=== PATIENT | male | born 1970 | race Asian ===

== ENCOUNTER 2018-01-04 11:16 | Inpatient (IN) | payer OTHER ==
[~2018-01-04] VITALS: Ht 167.6 cm; Wt 66.3 kg
--- NOTE | 2018-01-04 12:23 | ED GENERAL ADULT ---
History of Present Illness General Chief Complaint: Sore Throat, Dental Pain Stated Complaint: SIB ENT FOR ABSESS ON LEFT NECK Source: patient Exam Limitations: no limitations Vital Signs & Intake/Output Vital Signs & Intake/Output Vital Signs Date Time Temp Pulse Resp B/P B/P Pulse O2 O2 Flow FiO2 Mean Ox Delivery Rate 01/04 1536 98.7 80 18 120/56 99 Room Air 01/04 1250 Room Air Allergies Coded Allergies: No Known Allergies (01/04/18) Reconcile Medications No Known Home Medications Triage Note: PT SIB DR LOZANO FOR AN INFECTED R SIDED SALIVARY GLAND, PT REPORTING PAINFUL SWALLOWING, NO DIFF BREATHING, REPORTING TEMP OF 100.4 LAST NIGHT. Triage Nurses Notes Reviewed? yes HPI: Patient noticed swelling to the left side of his neck approximately 3 days ago. Patient went to see his primary care physician yesterday and he was started on Augmentin. Patient then saw Dr. Lozano in her office today. Dr. Lozano sent him in for evaluation of laboratory data and to obtain a CAT scan of his neck. She would also like him to receive an IV dose of Unasyn. She is unsure if he will require hospitalization for IV antibiotics and possible drainage or if he can be handled as an outpatient. Patient denies any difficulty breathing or swallowing. He describes a pressure type pain in the left side of his neck. Pain is constant. No radiation. He rates it as 3 out of 10. He denies any fevers or chills. Past History Travel History Traveled to [place] past 21 day No Medical History Any Pertinent Medical History? none Neurological: NONE EENT: NONE Cardiovascular: NONE Respiratory: NONE Gastrointestinal: NONE Hepatic: NONE Renal: NONE Musculoskeletal: NONE Psychiatric: NONE Endocrine: NONE Blood Disorders: NONE Cancer(s): NONE Surgical History Surgical History: non-contributory Psychosocial History What is your primary language [place] Tobacco Use: Never used ETOH Use: denies use Illicit Drug Use: denies illicit drug use Family History Hx Contributory? No Review of Systems Review of Systems Constitutional: Reports: no symptoms. EENTM: Reports: see HPI. Respiratory: Reports: no symptoms. Cardiovascular: Reports: no symptoms. GI: Reports: no symptoms. Musculoskeletal: Reports: no symptoms. Neurological/Psychological: Reports: no symptoms. Immunologic/Allergic: Reports: no symptoms. Physical Exam Physical Exam General Appearance: well developed/nourished, alert, awake, mild distress Eyes: Bilateral: PERRL, EOMI. Neck: SWELLINGTO LEFT ANTERIOR NECK Respiratory: normal breath sounds, chest non-tender, no respiratory distress, lungs clear Cardiovascular: regular rate/rhythm, normal peripheral pulses Neurologic/Psych: no motor/sensory deficits, awake, alert, oriented x 3, normal gait, normal mood/affect Lymphatic: no anterior cervical purnima Core Measures ACS in differential dx? No CVA/TIA Diagnosis: No Sepsis Present: No Sepsis Focused Exam Completed? No Progress Differential Diagnoses I considered the following diagnoses in my evaluation of the patient: [SALIVARY ADENITIS, ABSCESS] Plan of Care: Orders Procedure Date/time Status Regular Diet 01/05 B Active Pathway - chart 01/04 180 Active House Staff 01/04 1806 Active Patient Data 01/04 1806 Active Patient Data 01/04 1747 Active ED Holding Orders 01/04 1652 Active Admit to inpatient 01/04 1652 Active Vital Signs 01/04 1652 Active Code Status 01/04 1652 Active BLOOD CULTURE 01/04 1124 Active COMPREHENSIVE METABOLIC PANEL 01/04 1124 Complete CBC WITHOUT DIFFERENTIAL 01/04 1124 Complete VTE Mechanical Prophylaxis 01/04 UNK Active Laboratory Tests 01/04/18 1207: Anion Gap 14, Estimated GFR > 60, BUN/Creatinine Ratio 13.8, Glucose 96, Calcium 9.7, Total Bilirubin 1.6 H, AST 17, ALT 40, Alkaline Phosphatase 87, Total Protein 7.7, Albumin 4.4, Globulin 3.3, Albumin/Globulin Ratio 1.3, CBC w Diff MAN DIFF ORDERED, RBC 5.53, MCV 90.2, MCH 30.3, MCHC 33.6, RDW 13.2, MPV 8.8, Gran % 81.5 H, Lymphocytes % 8.5 L, Monocytes % 9.6 H, Eosinophils % 0.2, Basophils % 0.2, Absolute Granulocytes 14.6 H, Absolute Lymphocytes 1.5, Absolute Monocytes 1.7 H, Absolute Eosinophils 0, Absolute Basophils 0, Platelet Estimate VERIFIED BY SMEAR, Normocytic RBCs VERIFIED, Normochromic RBCs VERIFIED Microbiology 01/04 1235 BLOOD: Blood Culture - RECD 01/04 1230 BLOOD: Blood Culture - RECD Diagnostic Imaging: Viewed by Me: CT Scan. Discussed w/RAD: CT Scan. Radiology Impression: PATIENT: BRUNO MONTES DE OCA PRESENT AGE: 47 PATIENT ACCOUNT NO: [id number] : 68 LOCATION: [facility] ORDERING PHYSICIAN: Cornelius Marvin MD SERVICE DATE: 01/04/18 EXAM TYPE: CAT - CT NECK W IV CONTRAST CT NECK WITH IV CONTRAST CLINICAL INFORMATION: Swelling in the left anterior neck. Elevated white count. COMPARISON: None available. TECHNIQUE: Multidetector CT acquisition of the neck is obtained following the administration of 90 mL of Optiray 320 intravenous contrast without complication. FINDINGS: There is left submandibular acute sialoadenitis with heterogeneous enhancement of the left submandibular gland and significant inflammatory changes within the adjacent left submandibular soft tissues. There is associated thickening of the left platysma muscle compatible with adjacent myositis. Cellulitic changes extend into the left aryepiglottic fold with effacement of the left piriform sinus. There are a few subcentimeter hyperenhancing lymph nodes adjacent to the left submandibular gland that are most likely reactive. No radiopaque calculi are seen along the course of the left submandibular duct. There is a 1.5 cm AP by 1.4 cm TV by 1.8 cm CC peripherally enhancing fluid collection within the lower aspect of the left submandibular gland compatible with an intraglandular abscess. No additional abscesses are identified. Cellulitic changes extend inferiorly superficial to the left platysma muscle and between the left platysma muscle and left thyroid strap musculature. There is no venous thrombosis. The fat planes within the floor of mouth are symmetric and normal. There are no retropharyngeal fluid collections. The thyroid gland is normal. Parotid glands are normal. Cervical arterial vasculature normally opacify. 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 Calcified granuloma along the lateral aspect of the left major fissure. More inferiorly there is a 5 mm nodule within the left major fissure, most likely a fissural lymph node. There is some scarring within the right lung apex and adjacent to the major fissure. The partially imaged intracranial compartment is unremarkable. Small retention cyst within the floor of the right maxillary sinus. The remaining imaged paranasal sinuses and the mastoid air cells are clear. No periapical disease. Bilateral ocular staphylomas. IMPRESSION: - Left submandibular acute sialoadenitis with adjacent left submandibular, cervical, and left aryepiglottic fold cellulitis, the latter resulting in effacement of the left piriform sinus. Myositis of the left platysma muscle and left thyroid strap musculature. - There is an up to 1.8 cm peripherally enhancing fluid collection within the inferior aspect of the left submandibular gland that is most compatible with an intraglandular abscess. - Reactive adjacent lymph nodes. - No radiopaque calculi along the course of [place]'s duct. DICTATED BY: Jass Pressley MD DATE/TIME DICTATED:01/04/181614 STOKER MECHANIC:CHRIST DATE/TIME TRANSCRIBED:01/04/181614 CONFIDENTIAL, DO NOT COPY WITHOUT APPROPRIATE AUTHORIZATION. <Electronically signed in Other Vendor System> SIGNED BY: Jass Pressley MD 01/04/18 1630 Initial ED EKG: none Departure Departure Disposition: STILL A PATIENT Condition: Stable Clinical Impression Primary Impression: Submandibular abscess Secondary Impressions: Submandibular sialoadenitis Referrals: Mimi MARQUEZ,Melquiades Staley (PCP/Family) Departure Forms: Customer Survey General Discharge Information Prescriptions: Current Visit Scripts No Known Home Medications Admission Note Spoke With: Kris Bravo MD Documentation of Exam: Documentation of any treatments & extenuating circumstances including Concerns Regarding Discharge (functional status, medication knowledge or non-compliance, living conditions, etc.) that warrant an admission rather than observation: [IV UNASYN 3GR Q6 HOURS, DR. LOZANO WILL SEE HIM TOMORROW, HER CELL NUMBER IS ] Critical Care Note Critical Care Note Critical Care Time: non-applicable
[2018-01-04 12:31] LABS: ABSOLUTE BASOPHIL COUNT 0 /CUMM (0.0-0.2); ABSOLUTE EOSINOPHIL COUNT 0 /CUMM (0.0-0.7); ABSOLUTE GRANULOCYTE CT 14.6 /CUMM (1.4-6.5); ABSOLUTE LYMPH COUNT 1.5 /CUMM (1.2-3.4); ABSOLUTE MONOCYTE COUNT 1.7 /CUMM (0.10-0.60); BASOPHIL % 0.2 % (0.0-2.0); EOSINOPHIL % 0.2 % (0-5); GRANULOCYTE % 81.5 % (42.2-75.2); HEMATOCRIT 49.9 % (42-52); MEAN CORPUSCULAR HGB 30.3 PG (27.0-31.0); MEAN CORPUSCULAR HGB CONC 33.6 G/DL (33.0-37.0); MEAN CORPUSCULAR VOLUME 90.2 FL (80.0-94.0); MEAN PLATELET VOLUME 8.8 FL (7.4-10.4); PLATELET COUNT 268 /CUMM (130-400); RBC DISTRIBUTION WIDTH 13.2 % (11.5-14.5); RED BLOOD CELL CT 5.53 /CUMM (4.70-6.10); WHITE BLOOD CELL COUNT 17.9 /CUMM (4.8-10.8)
--- NOTE | 2018-01-04 16:30 | CT SCAN REPORT ---
CT NECK WITH IV CONTRAST CLINICAL INFORMATION: Swelling in the left anterior neck. Elevated white count. COMPARISON: None available. TECHNIQUE: Multidetector CT acquisition of the neck is obtained following the administration of 90 mL of Optiray 320 intravenous contrast without complication. FINDINGS: There is left submandibular acute sialoadenitis with heterogeneous enhancement of the left submandibular gland and significant inflammatory changes within the adjacent left submandibular soft tissues. There is associated thickening of the left platysma muscle compatible with adjacent myositis. Cellulitic changes extend into the left aryepiglottic fold with effacement of the left piriform sinus. There are a few subcentimeter hyperenhancing lymph nodes adjacent to the left submandibular gland that are most likely reactive. No radiopaque calculi are seen along the course of the left submandibular duct. There is a 1.5 cm AP by 1.4 cm TV by 1.8 cm CC peripherally enhancing fluid collection within the lower aspect of the left submandibular gland compatible with an intraglandular abscess. No additional abscesses are identified. Cellulitic changes extend inferiorly superficial to the left platysma muscle and between the left platysma muscle and left thyroid strap musculature. There is no venous thrombosis. The fat planes within the floor of mouth are symmetric and normal. There are no retropharyngeal fluid collections. The thyroid gland is normal. Parotid glands are normal. Cervical arterial vasculature normally opacify. 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 Calcified granuloma along the lateral aspect of the left major fissure. More inferiorly there is a 5 mm nodule within the left major fissure, most likely a fissural lymph node. There is some scarring within the right lung apex and adjacent to the major fissure. The partially imaged intracranial compartment is unremarkable. Small retention cyst within the floor of the right maxillary sinus. The remaining imaged paranasal sinuses and the mastoid air cells are clear. No periapical disease. Bilateral ocular staphylomas. IMPRESSION: - Left submandibular acute sialoadenitis with adjacent left submandibular, cervical, and left aryepiglottic fold cellulitis, the latter resulting in effacement of the left piriform sinus. Myositis of the left platysma muscle and left thyroid strap musculature. - There is an up to 1.8 cm peripherally enhancing fluid collection within the inferior aspect of the left submandibular gland that is most compatible with an intraglandular abscess. - Reactive adjacent lymph nodes. - No radiopaque calculi along the course of [place]'s duct.
--- NOTE | 2018-01-04 17:54 | History & Physical ---
Ameena MARQUEZ,[facility] 01/04/18 1754: General Information and HPI MD Statement: I have seen and personally examined BRUNO MARIE and documented this H&P. The patient is a 47 year old M who presented with a patient stated chief complaint of sent in by ENT Physician. Source of Information: patient, family, old records Exam Limitations: no limitations History of Present Illness: Mr. 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 Patient states that his illness originally began the beginning of the week on Saturday12/30/2017. He initially thought that his symptoms may be due to a local viral infection that he may have been exposed to by his kids. He subsequently decided that he watch this and on felt that this got worse. Patient states that over the course of the week his swelling in his left neck continued to get bigger. On 01/03/2018 he visited with his primary care physician Melquiades Le MD and was started on oral Augmentin. While at Melquiades Le MD's office ENT physician Dr. Lozano was called and recommended that if symptoms did not improve in the next 24 hours the patient should visit her office. Patient was febrile up to 100.4. He also endorses subjective fever and chills. On the morning of 01/04/2018 the patient visited the office of Dr. Lozano who recommended that the patient come to the emergency department for IV antibiotics since his symptoms has not really improved. Prior to this the patient was in his normal state of health. He denies any trauma to the area. Denies any recent IV contrast exposure. He denies any radiation. Patient is not on any medications. His primary care physician is Melquiades Le MD. 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 Allergies/Medications Allergies: Coded Allergies: No Known Allergies (01/04/18) Home Med list Amoxicillin/Potassium Clav (Augmentin 875-125 Tablet) 875 MG-125 MG TABLET 1 TAB PO BID Sialadenitis Start taking the evening of 01/06/18 Compliance With Home Meds: GOOD Past History Travel History Traveled to [place] past 21 day No Medical History Neurological: NONE EENT: NONE Cardiovascular: NONE Respiratory: Tuberculosis, treated for 12 months, with qaudruple therapy. Gastrointestinal: NONE Hepatic: NONE Renal: NONE Musculoskeletal: NONE Psychiatric: NONE Endocrine: NONE Blood Disorders: NONE Cancer(s): NONE Surgical History Surgical History: non-contributory Past Family/Social History Family History Relations & Conditions if any FATHER (HTN & Parkinsons). MOTHER (HTN). Psychosocial History Where do you live? Home Who Do You Live With? spouse, child Services at Home: None Primary Language: Latvian Smoking Status: Former Smoker ETOH Use: denies use Illicit Drug Use: denies illicit drug use Living Will? no Functional Ability ADLs Independent: dressing, eating, toileting, bathing. Ambulation: independent IADLs Independent: shopping, housework, finances, food prep, telephone, transportation , medication admin. Sexual History Sexually Active Yes # of partners 1 Sexual Orientation Heterosexual Employment History Employment Employed Review of Systems Review of Systems Constitutional: Reports: chills, fever. EENTM: Reports: throat pain, throat swelling. Denies: blurred vision, double vision, mouth pain. Cardiovascular: Denies: chest pain, edema, orthopena. Respiratory: Denies: cough, hemoptysis, orthopnea, short of breath, sputum production. GI: Denies: abdominal pain, bloating, constipation, diarrhea, distention, bowel incontinence, melena. Genitourinary: Denies: discharge, dysuria, frequency, hematuria. Musculoskeletal: Denies: back pain, gout, joint pain. Skin: Denies: change in hair/nails, dryness, erythema, jaundice. Neurological/Psychological: Denies: anxiety, cognitive dysfunction, confusion, depressed. Exam & Diagnostic Data Last 24 Hrs of Vital Signs/I&O Vital Signs Date Time Temp Pulse Resp B/P B/P Pulse O2 O2 Flow FiO2 Mean Ox Delivery Rate 01/04 1536 98.7 80 18 120/56 99 Room Air 01/04 1250 Room Air Intake & Output 01/04 1600 01/04 0800 01/04 0000 Intake Total Output Total Balance Patient 67.585 kg Weight Weight Reported by Patient Measurement Method Physical Exam General Appearance Alert, Oriented X3 Skin No Rashes, No Breakdown, No Significant Lesion, Scar Located in the Right Clavicular area Skin Temp/Moisture Exam: Warm/Dry Sepsis Skin Exam (color): Normal for Ethnicity HEENT PERRLA, EOMI, Mucous Membranes Dry , Erytehma and tenderness noted on left lateral enterior neck. Swelling noted approximately 5 cm X 5 cm. Neck Supple, Left Sided Swelling. Signs of erythema and tenderness with light touch. Cardiovascular Normal S1, Normal S2 Lungs Clear to Auscultation Abdomen Normal Bowel Sounds, Soft, No Tenderness Neurological Normal Speech, Strength at 5/5 X4 Ext Extremities No Cyanosis, No Edema Vascular Normal Pulses Body Front and Back (Adult) 1) Left sided neck pain Last 24 Hrs of Labs/Luis: Laboratory Tests 01/04/18 1207: Anion Gap 14, Estimated GFR > 60, BUN/Creatinine Ratio 13.8, Glucose 96, Calcium 9.7, Total Bilirubin 1.6 H, AST 17, ALT 40, Alkaline Phosphatase 87, Total Protein 7.7, Albumin 4.4, Globulin 3.3, Albumin/Globulin Ratio 1.3, CBC w Diff MAN DIFF ORDERED, RBC 5.53, MCV 90.2, MCH 30.3, MCHC 33.6, RDW 13.2, MPV 8.8, Gran % 81.5 H, Lymphocytes % 8.5 L, Monocytes % 9.6 H, Eosinophils % 0.2, Basophils % 0.2, Absolute Granulocytes 14.6 H, Absolute Lymphocytes 1.5, Absolute Monocytes 1.7 H, Absolute Eosinophils 0, Absolute Basophils 0, Platelet Estimate VERIFIED BY SMEAR, Normocytic RBCs VERIFIED, Normochromic RBCs VERIFIED Microbiology 01/04 1235 BLOOD: Blood Culture - RECD 01/04 1230 BLOOD: Blood Culture - RECD Diagnostic Data Other Results SERVICE DATE: 01/04/18 EXAM TYPE: CAT - CT NECK W IV CONTRAST CT NECK WITH IV CONTRAST CLINICAL INFORMATION: Swelling in the left anterior neck. Elevated white count. COMPARISON: None available. TECHNIQUE: Multidetector CT acquisition of the neck is obtained following the administration of 90 mL of Optiray 320 intravenous contrast without complication. FINDINGS: There is left submandibular acute sialoadenitis with heterogeneous enhancement of the left submandibular gland and significant inflammatory changes within the adjacent left submandibular soft tissues. There is associated thickening of the left platysma muscle compatible with adjacent myositis. Cellulitic changes extend into the left aryepiglottic fold with effacement of the left piriform sinus. There are a few subcentimeter hyperenhancing lymph nodes adjacent to the left submandibular gland that are most likely reactive. No radiopaque calculi are seen along the course of the left submandibular duct. There is a 1.5 cm AP by 1.4 cm TV by 1.8 cm CC peripherally enhancing fluid collection within the lower aspect of the left submandibular gland compatible with an intraglandular abscess. No additional abscesses are identified. Cellulitic changes extend inferiorly superficial to the left platysma muscle and between the left platysma muscle and left thyroid strap musculature. There is no venous thrombosis. The fat planes within the floor of mouth are symmetric and normal. There are no retropharyngeal fluid collections. The thyroid gland is normal. Parotid glands are normal. Cervical arterial vasculature normally opacify. 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 Calcified granuloma along the lateral aspect of the left major fissure. More inferiorly there is a 5 mm nodule within the left major fissure, most likely a fissural lymph node. There is some scarring within the right lung apex and adjacent to the major fissure. The partially imaged intracranial compartment is unremarkable. Small retention cyst within the floor of the right maxillary sinus. The remaining imaged paranasal sinuses and the mastoid air cells are clear. No periapical disease. Bilateral ocular staphylomas. IMPRESSION: - Left submandibular acute sialoadenitis with adjacent left submandibular, cervical, and left aryepiglottic fold cellulitis, the latter resulting in effacement of the left piriform sinus. Myositis of the left platysma muscle and left thyroid strap musculature. - There is an up to 1.8 cm peripherally enhancing fluid collection within the inferior aspect of the left submandibular gland that is most compatible with an intraglandular abscess. - Reactive adjacent lymph nodes. - No radiopaque calculi along the course of Dover's duct. DICTATED BY: Jass Pressley MD Assessment/Plan Assessment: Mr. 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 His symptoms are likely related to acute dehydration versus poor dentition. Problem List: #Acute sialoadenitis with adjacent left cellulitis #Acute Pain #Elevated Billirubin Admit the patient to general medical service. Continue IV antibiotic 6 with IV Unasyn. Will monitor vital signs every 4 hours and if any signs of respiratory distress would have a low threshold to transfer to [facility] for close monitoring and possible intubation. Warm compresses to area. Formal ENT consultation has been obtained for 01/05/2018. Gentle hydration with normal saline at 75 mL per hour. CBC and BEP in a.m. May consider infectious diseases consultation in a.m. if patient's symptoms are not improved. Pain to be controlled with a combination of Tylenol, NSAIDs and morphine for breakthrough pain. Elevated bilirubin likely due to infection. Monitor bilirubin in a.m. If continues to rise may consider abdominal ultrasound in the morning. DVT prophylaxis with Lovenox. Diet will begin the patient on a mechanical soft diet but will make patient nothing by mouth at midnight in case surgical intervention is warranted in am. Patient is a full code. As Ranked By This Provider Problem List: 1. Submandibular sialoadenitis 2. Submandibular abscess Core Measures/Misc (07/14) Acute Coronary Syndrome ACS Diagnosis: No Congestive Heart Failure Congestive Heart Failure Diagnosis No Cerebrovascular Accident CVA/TIA Diagnosis: No VTE (View Protocol) VTE Risk Factors Age>40 No Mechanical VTE Prophylaxis d/t N/A MechProphylax Ordered No VTE Pharm Prophylaxis d/t NA PharmProphylax ordered Sepsis (View protocol) Sepsis Present: No Flor Porras 01/05/18 0059: Attending MD Review Statement Attending Statement Attending MD Statement: examined this patient, discuss w/resident/PA/INTERNAL SALES, agreed w/resident/PA/INTERNAL SALES, reviewed EMR data (avail), reviewed images, amended to note Attending Assessment/Plan: CC: Swelling on left side of neck PMH: Past history of tuberculosis Patient was sent to ER by ENT for swelling in left side of neck. Swelling started on Saturday, progressively worse until , patient thought it might be lymphadenopathy so he watched the swelling, been on Saturday he visited her primary care physician where primary care physician discussed the findings with ENT, who suggested to continue Augmentin, watch for 24 hours and suggested to follow-up with her. When patient went to see her today swelling had worsened, patient had mild dysphasia, so patient was suggested to go to ER for further imaging, IV antibiotics. Patient endorses fever, chills at home, no dental trauma or dental procedure, no chest pain, palpitations, breathing difficulty, otherwise ROS unremarkable Vitals: T max 100.7, pulse 98, RR 20, blood pressure 120/56, saturating 99% on room air. On exam: A O 3, cooperative, no acute distress, neck supple, approximately 5 cm diameter indurated swelling on left side of the neck, mild swelling under the tongue, trismus, no stridor, JVD normal, mucosa moist, no focal neurological deficit, no dependent edema, no obvious skin rashes or inflammation CVS: S1-S2, RRR. RS: Clear to auscultate bilaterally. Abdomen: Soft, NT, ND, bowel sounds present. CT neck with IV contrast - Left submandibular acute sialoadenitis with adjacent left submandibular, cervical, and left aryepiglottic fold cellulitis, the latter resulting in effacement of the left piriform sinus. Myositis of the left platysma muscle and left thyroid strap musculature. - There is an up to 1.8 cm peripherally enhancing fluid collection within the inferior aspect of the left submandibular gland that is most compatible with an intraglandular abscess. - Reactive adjacent lymph nodes. - No radiopaque calculi along the course of Dover's duct. Assessment and plan 47-year-old male with no significant past medical history was sent to ER by ENT for worsening left sided neck swelling, fever, chills, dysphagia. Patient has significant left neck swelling, mild inflammation under tongue, no obvious pus discharge, low-grade fever, significant leukocytosis. CT scan mentions finding of submandibular gland abscess with surrounding inflammation. ENT was called from ER. We will continue evening diet and then nothing by mouth after midnight, if patient may require I and D. We'll continue Unasyn, pain control. + Left submandibular abscess with surrounding inflammation - Admit to general med - Continue gentle hydration - Nothing by mouth after midnight - Continue IV Unasyn - Adequate pain control - Warm compresses - Trend lactate
[2018-01-04 20:29] VITALS: BP 134/80
--- NOTE | 2018-01-05 01:00 | Admission Certification ---
Admission Certification Certification Statement - As attending physician, I certify that at the time of - admission, based on clinical presentation, severity of - symptoms, need for further diagnostic testing and - therapeutic interventions, and risk of adverse outcomes - without in-hospital treatment, in my clinical assessment, - this patient requires an acute hospital stay for a minimum - of two nights or longer. I have also considered psychsocial - factors such as support system, advanced age, financial - issues, cognitive issues, and failed out-patient treatments, - past re-admission history, safety of patient, and lack of - compliance as applicable. Specific rationale supporting this admission is: left submandibular gland abscess
[2018-01-05 01:51] VITALS: BP 115/77
[2018-01-05 06:20] VITALS: BP 107/66
--- NOTE | 2018-01-05 07:30 | Event Note ---
Event Note Event Note: At 7:30 AM internet project manager received call that ENT Dr. Larsen had called the nurse for update on Mr. Marie. Consulting Technical Manager return call and updated on patient's status including vital signs, imaging tests, labs. Dr. Larsen stated that likely no surgical intervention as this type of infection is usually resolved with antibiotics followed by removal of the salivary gland when infection completely irradicated but told us to keep the patient nothing by mouth. He will come by to assess the patient this morning. Told to speak with Dr. Cornelius Lerma, internet project manager when he arrives.
[2018-01-05 08:49] LABS: ABSOLUTE BASOPHIL COUNT 0 /CUMM (0.0-0.2); ABSOLUTE EOSINOPHIL COUNT 0.1 /CUMM (0.0-0.7); ABSOLUTE GRANULOCYTE CT 9.5 /CUMM (1.4-6.5); ABSOLUTE LYMPH COUNT 1.3 /CUMM (1.2-3.4); ABSOLUTE MONOCYTE COUNT 1.4 /CUMM (0.10-0.60); BASOPHIL % 0.3 % (0.0-2.0); EOSINOPHIL % 0.9 % (0-5); GRANULOCYTE % 76.9 % (42.2-75.2); MEAN CORPUSCULAR HGB 30.8 PG (27.0-31.0); MEAN CORPUSCULAR HGB CONC 33.6 G/DL (33.0-37.0); MEAN CORPUSCULAR VOLUME 91.9 FL (80.0-94.0); MEAN PLATELET VOLUME 8.9 FL (7.4-10.4); PLATELET COUNT 250 /CUMM (130-400); RBC DISTRIBUTION WIDTH 13.1 % (11.5-14.5); RED BLOOD CELL CT 4.65 /CUMM (4.70-6.10); WHITE BLOOD CELL COUNT 12.3 /CUMM (4.8-10.8)
--- NOTE | 2018-01-05 08:51 | PN- Housestaff ---
Destiney MARQUEZ,[facility] 01/05/18 0850: Subjective Follow-up For: sialoadenitis Subjective: Patient was seen and examined at bedside. He is resting comfortably. He had no acute events overnight. He reports significant improvement in his left-sided throat pain and swelling. He had no fever overnight. He denies any nausea, vomiting, fever, chills, chest pain, shortness of breath. Review of Systems Constitutional: Denies: chills, malaise. EENTM: Reports: throat pain, throat swelling. Cardiovascular: Reports: no symptoms. Respiratory: Reports: no symptoms. Gastrointestinal: Reports: no symptoms. Genitourinary: Reports: no symptoms. Musculoskeletal: Reports: no symptoms. Objective Last 24 Hrs of Vital Signs/I&O Vital Signs Date Time Temp Pulse Resp B/P B/P Pulse O2 O2 Flow FiO2 Mean Ox Delivery Rate 01/05 0620 98.5 69 18 107/66 99 Room Air 01/05 0151 98.1 70 18 115/77 98 Room Air 01/04 2029 98.5 98 20 134/80 97 Room Air 01/04 1943 100.7 01/04 1937 100.7 98 20 144/97 98 Room Air 01/04 1536 98.7 80 18 120/56 99 Room Air 01/04 1250 Room Air Intake & Output 01/05 1600 01/05 0800 01/05 0000 Intake Total 600 1125 Output Total Balance 600 1125 Intake, IV 600 325 Intake, Oral 0 800 Patient 146 lb 149 lb Weight Weight Bed scale Measurement Method Physical Exam General Appearance: Alert, Oriented X3, Cooperative, No Acute Distress Skin Temp/Moisture Exam: Warm/Dry HEENT: PERRLA, EOMI, Mucous Membr. moist/pink Neck: L submandibular firm neck swelling, with mild TTp Cardiovascular: Regular Rate, Normal S1, Normal S2 Lungs: Clear to Auscultation, Normal Air Movement Abdomen: Normal Bowel Sounds, Soft, No Tenderness Neurological: Cranial Nerves 3-12 NL Current Medications: Current Medications Sig/Luz Start time Last Medication Dose Route Stop Time Status Admin Acetaminophen 0 .STK-MED ONE 01/05 1944 DC IV Acetaminophen 1,000 MG Q6P PRN 01/04 184 AC 01/04 IV 1942 Ampicillin Sodium/ 0 .STK-MED ONE 01/04 1914 DC Sulbactam Sodium .ROUTE Ampicillin Sodium/ 3,000 MG Q6 01/04 1827 AC 01/05 Sulbactam Sodium IV 0547 Sodium Chloride 100 ML Ampicillin Sodium/ 3,000 MG ONCE ONE 01/04 1230 DC 01/04 Sulbactam Sodium IV 01/04 1259 1240 Sodium Chloride 100 ML Ampicillin Sodium/ 0 .STK-MED ONE 01/04 1225 DC Sulbactam Sodium .ROUTE Enoxaparin Sodium 40 MG DAILY 01/045 AC 01/04 SC 2235 Ibuprofen 200 MG Q6 PRN 01/04 1845 AC 01/04 PO 2235 Morphine Sulfate 2 MG Q8 PRN 01/04 1845 AC IV Sodium Chloride 1,000 ML Q13H 01/04 1915 DC 01/04 IV 01/05 0814 2044 Last 24 Hrs of Lab/Luis Results Last 24 Hrs of Labs/Mics: Laboratory Tests 01/05/18 0725: Sodium Pending, Potassium Pending, Chloride Pending, Carbon Dioxide Pending, Anion Gap Pending, BUN Pending, Creatinine Pending, BUN/Creatinine Ratio Pending , Total Bilirubin Pending, CBC w Diff Pending, WBC Pending, RBC Pending, Hgb Pending, Hct Pending, MCV Pending, MCH Pending, MCHC Pending, RDW Pending, Plt Count Pending, MPV Pending 01/05/18 0145: Lactic Acid 0.7 01/04/18 2250: Lactic Acid 0.8 01/04/18 1207: Anion Gap 14, Estimated GFR > 60, BUN/Creatinine Ratio 13.8, Glucose 96, Calcium 9.7, Total Bilirubin 1.6 H, AST 17, ALT 40, Alkaline Phosphatase 87, Total Protein 7.7, Albumin 4.4, Globulin 3.3, Albumin/Globulin Ratio 1.3, CBC w Diff MAN DIFF ORDERED, RBC 5.53, MCV 90.2, MCH 30.3, MCHC 33.6, RDW 13.2, MPV 8.8, Gran % 81.5 H, Lymphocytes % 8.5 L, Monocytes % 9.6 H, Eosinophils % 0.2, Basophils % 0.2, Absolute Granulocytes 14.6 H, Absolute Lymphocytes 1.5, Absolute Monocytes 1.7 H, Absolute Eosinophils 0, Absolute Basophils 0, Platelet Estimate VERIFIED BY SMEAR, Normocytic RBCs VERIFIED, Normochromic RBCs VERIFIED Microbiology 01/04 1235 BLOOD: Blood Culture - RECD 01/04 1230 BLOOD: Blood Culture - RECD Assessment/Plan 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 #Acute sialoadenitis Personally reviewed the CT imaging with Dr. Larsen, and no abscess or stone was seen. Patient is clinically improving. - Continue IV Unasyn. - Warm compresses to area. -Start sialogogue in between meals - Recommend aggressive oral rehydration and left-sided neck -If patient is stable overnight he may be discharged tomorrow a.m. on Augmentin with ENT follow-up in 2 weeks -Continue adequate pain management DVT prophylaxis with Lovenox. Full liquid diet, advance to regular diet as tolerated Patient is a full code. Problem List: 1. Submandibular sialoadenitis Pain Ratin Pain Location: L neck Pain Goal: Pain 4 or less Pain Plan: pain pathway Tomorrow's Labs & Rationales: Akilah Robledo MD 01/05/18 1315: Attending MD Review Statement Attending Statement Attending MD Statement: examined this patient, discuss w/resident/PA/MATERIAL STRESS TESTER, agreed w/resident/PA/MATERIAL STRESS TESTER, reviewed EMR data (avail) Attending Assessment/Plan: Doing well, afebrile, stable vitals. Will continue Unasyn and sialogogues, follow ENT recommendations, anticipated discharge tomorrow if continues to improve.
[2018-01-05 09:13] LABS: HEMATOCRIT 42.7 % (42-52)
--- NOTE | 2018-01-05 09:53 | Cons- Ear,Nose&Throat ---
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 He thought was perhaps lymphadenitis therefore treated expectantly. The neck continued to swell and became more uncomfortable. On 01/03/18 he saw his Primary care physician who started him on Augmentin 875 mg twice a day. The following morning he noted increased swelling, and tenderness and low-grade fever and was referred to Francesca Lozano MD was evaluated him in the office and felt that intravenous antibiotics would be more appropriate and a CAT scan was ordered. The CAT scan revealed enlargement of the left submandibular gland with areas of lucency possibly abscess formation. No evidence of any stones were noted He was then admitted to the hospital and begun on Unasyn. This morning he states he feels much improved with decreased tenderness and swelling. He recalls an oral ulcer several weeks ago. There is no history of dental infection or abnormality Allergies/Medications Allergies: Coded Allergies: No Known Allergies (01/04/18) Home Med List: No Known Home Medications Current Medications: Current Medications Sig/Luz Start time Last Medication Dose Route Stop Time Status Admin Acetaminophen 0 .STK-MED ONE 01/05 1944 DC IV Acetaminophen 1,000 MG Q6P PRN 01/04 1845 AC 01/04 IV 1943 Ampicillin Sodium/ 0 .STK-MED ONE 01/04 1914 DC Sulbactam Sodium .ROUTE Ampicillin Sodium/ 3,000 MG Q6 01/04 1827 AC 01/05 Sulbactam Sodium IV 0547 Sodium Chloride 100 ML Ampicillin Sodium/ 3,000 MG ONCE ONE 01/04 1230 DC 01/04 Sulbactam Sodium IV 01/04 1259 1240 Sodium Chloride 100 ML Ampicillin Sodium/ 0 .STK-MED ONE 01/04 1225 DC Sulbactam Sodium .ROUTE Enoxaparin Sodium 40 MG DAILY 01/04 2115 AC 01/05 SC 0945 Ibuprofen 200 MG Q6 PRN 01/04 184 AC 01/04 PO 2235 Morphine Sulfate 2 MG Q8 PRN 01/04 184 AC IV Non-Formulary 0 SEE ADMIN CRITERIA 01/05 0945 UNVr Medication ANY Sodium Chloride 1,000 ML Q13H 01/04 1915 DC 01/04 IV 01/05 Past History Medical History Blood Transfusion Hx: No Neurological: NONE EENT: NONE Cardiovascular: NONE Respiratory: Tuberculosis, treated for 12 months, with qaudruple therapy. Gastrointestinal: NONE Hepatic: NONE Renal: NONE Musculoskeletal: NONE Psychiatric: NONE Endocrine: NONE Blood Disorders: NONE Cancer(s): NONE Surgical History Pertinent Surgical History: non-contributory Family History Relations & Conditions If Any: FATHER (HTN & Parkinsons). MOTHER (HTN). Psychosocial History Where Do You Live? Home Who Do You Live With? spouse, child Services at Home: None Primary Language: Turkish Smoking Status: Former Smoker ETOH Use: denies use Illicit Drug Use: denies illicit drug use Living Will? no Functional Ability ADLs Independent: dressing, eating, toileting, bathing. Ambulation: independent IADLs Independent: shopping, housework, finances, food prep, telephone, transportation , medication admin. Employment History Employment: Employed Exam & Diagnostic Data Vital Signs and I&O Vital Signs Date Time Temp Pulse Resp B/P B/P Pulse O2 O2 Flow FiO2 Mean Ox Delivery Rate 01/05 0620 98.5 69 18 107/66 99 Room Air 01/05 0151 98.1 70 18 115/77 98 Room Air 01/04 2029 98.5 98 20 134/80 97 Room Air 01/04 1943 100.7 01/04 193 100.7 98 20 144/97 98 Room Air 01/04 1536 98.7 80 18 120/56 99 Room Air 01/04 1250 Room Air Intake & Output 01/05 1600 01/05 0800 01/05 0000 01/04 1600 01/04 0800 01/04 0000 Intake Total 600 1125 Output Total Balance 600 1125 Intake, IV 600 325 Intake, Oral 0 800 Patient 146 lb 149 lb 149 lb Weight Weight Bed scale Reported by Patient Measurement Method Physical Exam: By examination at the bedside acute distress. He is awake alert and oriented intravenous fluids and medication in place. He is afebrile Voice is normal unremarkable airway Ears: Unremarkable Nose: Clear Oropharynx: No trismus The left floor of mouth is slightly erythematous but not swollen No dental caries are noted Neck examination reveals significantly swollen left submandibular gland which is slightly tender and measures approximately 4-5 cm. Palpation of the gland reveals no evidence of abnormal discharge from the Mcgrath's duct The neck is supple Assessment/Plan Assessment/Plan Impression: Acute left submandibular gland sialadenitis which is gradually improving with intravenous antibiotics Although there may be a small fluid collection, i do not feel drainage is appropriate at this time. Recommendation: Hydration both orally as well as intravenously Sialagogues between meals Massage of the gland Heat Continuation of present antibiotics with anticipation of switching to oral Augmentin Follow-up in the office with Dr. Lozano Consult Acknowledgment - Thank you for your consult request.
[2018-01-05 10:48] VITALS: BP 108/60
[2018-01-05 13:49] VITALS: BP 110/60
[2018-01-05 18:07] VITALS: BP 119/72
[2018-01-05 22:00] VITALS: BP 124/78
[2018-01-06 02:11] VITALS: BP 107/70
[2018-01-06 06:20] VITALS: BP 106/78
--- NOTE | 2018-01-06 07:19 | PN- Housestaff ---
Subjective Follow-up For: Sialadenitis Subjective: Patient was seen and examined at bedside. He is resting comfortably. He had no acute events overnight. He continues to have improvement in his left-sided throat pain but no significant change in swelling. He had no fever overnight. He tolerated a regular diet well. He denies any nausea, vomiting, fever, chills, chest pain, shortness of breath. Review of Systems Constitutional: Reports: no symptoms. EENTM: Reports: throat swelling. Denies: throat pain. Cardiovascular: Reports: no symptoms. Respiratory: Reports: no symptoms. Gastrointestinal: Reports: no symptoms. Genitourinary: Reports: no symptoms. Musculoskeletal: Reports: no symptoms. Objective Last 24 Hrs of Vital Signs/I&O Vital Signs Date Time Temp Pulse Resp B/P B/P Pulse O2 O2 Flow FiO2 Mean Ox Delivery Rate 01/06 0620 98.4 71 18 106/78 97 Room Air 01/06 0211 98.4 66 18 107/70 96 Room Air 01/05 2200 98.2 69 20 124/78 98 Room Air 01/05 1807 97.2 94 19 119/72 98 Room Air 01/05 1349 98.9 93 18 110/60 97 01/05 1048 99.2 79 18 108/60 97 Intake & Output 01/06 0800 01/06 0000 01/05 1600 Intake Total 935 096 2459 Output Total Balance 093 157 1330 Intake, IV 250 Intake, Oral 138 632 7939 Patient 146 lb Weight Weight Bed scale Measurement Method Physical Exam General Appearance: Alert, Oriented X3, Cooperative, No Acute Distress Skin Temp/Moisture Exam: Warm/Dry Neck: no change in firm submandibular swellin on L side of neck, remains TTP Cardiovascular: Regular Rate, Normal S1, Normal S2 Lungs: Clear to Auscultation, Normal Air Movement Abdomen: Normal Bowel Sounds, Soft, No Tenderness Neurological: Normal Speech, Normal Tone, Sensation Intact Extremities: No Clubbing, No Cyanosis, No Edema Current Medications: Current Medications Sig/Luz Start time Last Medication Dose Route Stop Time Status Admin Acetaminophen 1,000 MG Q6P PRN 01/04 1845 AC 01/05 IV 1717 Ampicillin Sodium/ 3,000 MG Q6 01/04 1827 AC 01/06 Sulbactam Sodium IV 0541 Sodium Chloride 100 ML Enoxaparin Sodium 40 MG DAILY 01/04 2115 01/05 SC 0945 Ibuprofen 200 MG Q6 PRN 01/04 184 AC 01/04 PO 2235 Morphine Sulfate 2 MG Q8 PRN 01/04 1845 IV Sodium Chloride 1,000 ML Q13H 01/04 1915 DC 01/04 IV 01/05 [id number] Last 24 Hrs of Lab/Luis Results Last 24 Hrs of Labs/Mics: Laboratory Tests 01/05/18 0725: Anion Gap 9, Estimated GFR > 60, BUN/Creatinine Ratio 15.0, Total Bilirubin 0.7, CBC w Diff NO MAN DIFF REQ, RBC 4.65 L, MCV 91.9, MCH 30.8, MCHC 33.6, RDW 13.1 , MPV 8.9, Gran % 76.9 H, Lymphocytes % 10.6 L, Monocytes % 11.3 H, Eosinophils % 0.9, Basophils % 0.3, Absolute Granulocytes 9.5 H, Absolute Lymphocytes 1.3, Absolute Monocytes 1.4 H, Absolute Eosinophils 0.1, Absolute Basophils 0 Assessment/Plan 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 #Acute sialoadenitis Patient has shown clinical improvement. -To receive IV Unasyn today and will be discharged on a 10 day courseof Augmentin - Warm compresses to area. -Continue with sialogogue in between meals as an outpatient - Recommend aggressive oral rehydration and left-sided neck massage - Patient's WBC has normalized and he has remained afebrile, he is stable for discharge today -Continue adequate pain management -He will be referred to Dr. Lozano as an outpatient for follow-up within 1-2 weeks DVT prophylaxis with Lovenox. Full liquid diet, advance to regular diet as tolerated Patient is a full code. Problem List: 1. Submandibular sialoadenitis Pain Ratin Pain Location: no pain, but L neck is tender to palpation Pain Goal: Remain pain free Pain Plan: pain pathway Tomorrow's Labs & Rationales: none
[2018-01-06 09:12] LABS: ABSOLUTE BASOPHIL COUNT 0 /CUMM (0.0-0.2); ABSOLUTE EOSINOPHIL COUNT 0.1 /CUMM (0.0-0.7); ABSOLUTE GRANULOCYTE CT 7.6 /CUMM (1.4-6.5); ABSOLUTE LYMPH COUNT 1.2 /CUMM (1.2-3.4); ABSOLUTE MONOCYTE COUNT 0.8 /CUMM (0.10-0.60); BASOPHIL % 0.4 % (0.0-2.0); EOSINOPHIL % 0.9 % (0-5); GRANULOCYTE % 78.4 % (42.2-75.2); HEMATOCRIT 43.4 % (42-52); MEAN CORPUSCULAR HGB CONC 33.8 G/DL (33.0-37.0); MEAN CORPUSCULAR VOLUME 91.8 FL (80.0-94.0); MEAN PLATELET VOLUME 8.8 FL (7.4-10.4); PLATELET COUNT 284 /CUMM (130-400); RED BLOOD CELL CT 4.73 /CUMM (4.70-6.10); WHITE BLOOD CELL COUNT 9.7 /CUMM (4.8-10.8)
[2018-01-06] MEDS ORDERED: AUGMENTIN 875-1 EACH PO ×3 (09:54→12:50)
--- NOTE | 2018-01-06 09:58 | Patient Discharge Instructions ---
Discharge Instructions General Discharge Information You were seen/treated for: Sialadenitis Special Instructions: Follow-up with Dr. Lozano within 1-2 weeks. We have provided you with a referral. Follow-up with your primary care phyisician within 1 week. Take full course of antibiotics. Suck on hard and sour candies like lemon drops or warheads in between meals. Use warm compresses on the swelling, and massage the area regularly. Stay well hydrated. If you sould experience worsening pain, throat tightness, difficulty swallowing or difficulty breathing, call your doctor or return to the ER right away. Acute Coronary Syndrome Inclusion Criteria At DC or during hospital stay patient has or had the following: ACS DIAGNOSIS No Discharge Core Measures Meds if any: Prescribed or Continued at Discharge Meds if any: NOT Prescribed or Continued at Discharge Congestive Heart Failure Inclusion Criteria At DC or during hospital stay patient has or had the following: CHF DIAGNOSIS No Discharge Core Measures Meds if any: Prescribed or Continued at Discharge Meds if any: NOT Prescribed or Continued at Discharge Cerebrovascular accident Inclusion Criteria At DC or during hospital stay patient has or had the following: CVA/TIA Diagnosis No Discharge Core Measures Meds if any: Prescribed or Continued at Discharge Meds if any: NOT Prescribed or Continued at Discharge Venous thromboembolism Inclusion Criteria VTE Diagnosis No VTE Type NONE VTE Confirmed by (Test) NONE Discharge Core Measures - Per Current guidelines, there needs to be overlap - treatment for the first 5 days of Warfarin therapy. - If discharged on Warfarin prior to 5 days of - overlap therapy, the patient will need to be - assessed for post discharge needs including - *Post discharge parental anticoagulation - *Warfarin and/or parental anticoagulation education - *Follow up date to check INR post discharge At least 5 days overlap therapy as Inpatient No Meds if any: Prescribed or Continued at Discharge Note: Overlap Therapy is Warfarin and Anticoagulant Meds if any: NOT Prescribed or Continued at Discharge
[2018-01-06 10:27] VITALS: BP 110/72
== END 2018-01-06 13:42 | DRG 156 ==
LOC: ERH 11:16 → EDSEX 11:16 → ERH 12:11 → ERHI 16:52 → ENRESERV 18:13 → ENTRNSPT 19:47 → EDTRNSPTSTS 19:54 → CMPTRNSPT 20:12 → 2NA 20:15 → ENPENDDIS 01-06 13:05 → 2NA 01-06 13:42
PROVIDERS: Dermatology; Emergency Medicine; Student in an Organized Health Care Education/Training Program
DX: K11.21 Acute sialoadenitis (principal); R13.10 Dysphagia, unspecified; E86.0 Dehydration; J34.1 Cyst and mucocele of nose and nasal sinus; K11.3 Abscess of salivary gland; M60.88 Other myositis, other site; D72.829 Elevated white blood cell count, unspecified; Z86.11 Personal history of tuberculosis; Z87.891 Personal history of nicotine dependence
CPT/HCPCS: 2NASP; 36592; 82436; 87040; 93005; 93010; 96374; J0131; J1650